=== PATIENT | male | born 1995 | race Caucasian/White ===

== ENCOUNTER 2018-12-16 12:17 | Emergency (ER) | payer MEDICAID ==
[2018-12-16 12:37] VITALS: BP 124/76
--- NOTE | 2018-12-16 13:06 | ER Document Report ---
ED Medical Screen (RME) - General Chief Complaint: Dog Bite Stated Complaint: DOG BITE Time Seen by Provider: 12/16/18 13:00 Primary Care Provider: RUDOLPH MCCRAY MD [Primary Care Provider] - Follow up as needed Notes: Patient was not anywhere to be found. Patient is LW BS TRAVEL OUTSIDE OF THE [place] IN LAST 30 DAYS: No - Related Data Allergies/Adverse Reactions: No Known Allergies Allergy (Verified 12/16/18 12:20) Past Medical History Pulmonary Medical History: Reports: Hx Asthma Psychiatric Medical History: Denies: Hx Schizoaffective Disorder, Hx Schizophrenia Past Surgical History: Reports: Hx Tonsillectomy - Immunizations Immunizations up to date: Yes Physical Exam - Vital signs Vitals: Temp Pulse Resp BP Pulse Ox 98.5 F 71 16 124/76 99 12/16/18 12:35 12/16/18 12:35 12/16/18 12:35 12/16/18 12:35 12/16/18 12:35 Course - Vital Signs Vital signs: Temp Pulse Resp BP Pulse Ox 98.5 F 71 16 124/76 99 12/16/18 12:35 12/16/18 12:35 12/16/18 12:35 12/16/18 12:35 12/16/18 12:35 Doctor's Discharge - Discharge Referrals: RUDOLPH MCCRAY MD [Primary Care Provider] - Follow up as needed
== END 2018-12-16 13:06 | disposition left against medical advice (07) ==
LOC: ER 12:17
DX: Z53.21 Procedure and treatment not carried out due to patient leaving prior to being seen by health care provider (principal)

== ENCOUNTER 2019-04-26 19:52 | Emergency (ER) | payer SELFPAY ==
[2019-04-26] MEDS ORDERED: LIDOCAINE 2% VISCOUS SOLN 20 ML UDCUP PO ONE (21:13)
[2019-04-26] MEDS ORDERED: MAG HYDROX/AL HYDROX/SIMETH SUSP 30 ML UDCUP PO ONE (21:13)
[2019-04-26] MEDS ORDERED: METOCLOPRAMIDE HCL ORAL SOLN 10 MG/10 ML UDCUP PO ONE (21:13)
--- NOTE | 2019-04-26 21:18 | ER Document Report ---
ED Medical Screen (RME) - General Chief Complaint: Epigastric Pain Stated Complaint: EPIGASTRIC PAIN,NAUSEA Time Seen by Provider: 04/26/19 21:08 Primary Care Provider: RUDOLPH MCCRAY MD [Primary Care Provider] - Follow up as needed Notes: Patient is a 24-year-old male who presents to the emergency department with a chief complaint of abdominal pain. Patient reports he has had intermittent right upper quadrant pain for the past 2 years. Patient [place] he was [place] up for this type of pain and was told it was his gallbladder but that they would not remove it unless it was life-threatening. Patient reports 4 hours ago he had acute onset of right upper quadrant pain. Patient reports at that time he also did have acid reflux. Patient reports the abdominal pain has continued to persist but that the acid reflux has gone away. Patient denies nausea, vomiting or diarrhea. Patient denies fever. TRAVEL OUTSIDE OF THE [place] IN LAST 30 DAYS: No - Related Data Allergies/Adverse Reactions: No Known Allergies Allergy (Verified 12/16/18 12:20) Past Medical History - Social History Frequency of alcohol use: Occasional Drug Abuse: None Pulmonary Medical History: Reports: Hx Asthma Psychiatric Medical History: Denies: Hx Schizoaffective Disorder, Hx Schizophrenia Past Surgical History: Reports: Hx Tonsillectomy - Immunizations Immunizations up to date: Yes Physical Exam - Vital signs Vitals: Temp Pulse Resp BP Pulse Ox 97.5 F 72 18 128/68 H 100 04/26/19 20:08 04/26/19 20:08 04/26/19 20:08 04/26/19 20:08 04/26/19 20:08 - Abdominal Inspection: Normal Distension: No distension Bowel sounds: Normal Tenderness: Tender - RUQ and LLQ Course - Re-evaluation Re-evalutation: 04/26/19 21:18 I have greeted and performed a rapid initial assessment of this patient. A comprehensive ED assessment and evaluation of the patient, analysis of test results and completion of the medical decision making process will be conducted by additional ED providers. - Vital Signs Vital signs: Temp Pulse Resp BP Pulse Ox 97.5 F 72 18 128/68 H 100 04/26/19 20:08 04/26/19 20:08 04/26/19 20:08 04/26/19 20:08 04/26/19 20:08 Doctor's Discharge - Discharge Referrals: RUDOLPH MCCRAY MD [Primary Care Provider] - Follow up as needed
[2019-04-26 21:37] LABS: ABSOLUTE BASOPHILS # (AUTO) 0.1 10^3/uL (0.0-0.2); ABSOLUTE EOSINOPHILS # (AUTO) 0.7 10^3/uL (0.0-0.6); ABSOLUTE LYMPHOCYTES (AUTO) 3.5 10^3/uL (0.5-4.7); ABSOLUTE MONOCYTES (AUTO) 0.8 10^3/uL (0.1-1.4); BASOPHILS % (AUTO) 0.8 % (0-2); EOSINOPHILS % (AUTO) 6.4 % (0-6); HEMOGLOBIN 15.9 g/dL (13.5-17.0); LYMPHOCYTES % (AUTO) 31.5 % (13-45); MEAN CORPUSCULAR HEMOGLOBIN 31.2 pg (27.0-33.4); MEAN CORPUSCULAR HGB CONC 34.6 g/dL (32.0-36.0); MEAN CORPUSCULAR VOLUME 90 fl (80-97); MONOCYTES % (AUTO) 7.1 % (3-13); PLATELET COUNT 217 10^3/uL (150-450); RED CELL DISTRIBUTION WIDTH 12.9 % (11.5-14.0); SEGMENTED NEUTROPHILS % (AUTO) 54.2 % (42-78); TOTAL CELLS COUNTED % (AUTO) 100 %; WHITE BLOOD COUNT 11.1 10^3/uL (4.0-10.5)
[2019-04-26 21:52] LABS: ALBUMIN 4.5 g/dL (3.5-5.0); ALKALINE PHOSPHATASE 110 U/L (38-126); ANION GAP 10 (5-19); ASPARTATE AMINO TRANSFERASE 36 U/L (17-59); BILIRUBIN,DIRECT 0.1 mg/dL (0.0-0.4); BILIRUBIN,TOTAL 1.1 mg/dL (0.2-1.3); BLOOD UREA NITROGEN 14 mg/dL (7-20); CALCIUM 9.6 mg/dL (8.4-10.2); CARBON DIOXIDE 24 mmol/L (22-30); CHLORIDE 107 mmol/L (98-107); GLUCOSE 86 mg/dL (75-110); POTASSIUM 4.3 mmol/L (3.6-5.0); TOTAL PROTEIN 7.3 g/dL (6.3-8.2)
[2019-04-26 21:57] LABS: APPEARANCE,URINE CLEAR; BILIRUBIN,URINE NEGATIVE (NEGATIVE); COLOR,URINE YELLOW; GLUCOSE, URINE NEGATIVE (NEGATIVE); KETONES,URINE NEGATIVE (NEGATIVE); LEUKOCYTE ESTERASE,URINE NEGATIVE (NEGATIVE); NITRITE,URINE NEGATIVE (NEGATIVE); PROTEIN,URINE NEGATIVE (NEGATIVE); URINE SPECIFIC GRAVITY 1.012; UROBILINOGEN,URINE NEGATIVE mg/dL (<2.0)
--- NOTE | 2019-04-26 22:45 | RADIOLOGY REPORT (SQ) ---
EXAM DESCRIPTION: [facility]: US ABDOMEN LIMITED CLINICAL HISTORY: 24 years Male; ruq pain TECHNIQUE: Right upper quadrant ultrasound was performed. COMPARISON: None. FINDINGS: Pancreas: Visualized portions are unremarkable. Liver: 16 cm long. No focal lesion or ductal distention. Portal venous flow is hepatopedal, normal. Gallbladder: Small amount of sludge, but no shadowing calculi. Wall is normal. No Napier sign. Common bile duct: 3 mm. Right kidney: 9.9 x 5.5 x 5.5 cm. No hydronephrosis. IMPRESSION: 1. Small amount of gallbladder sludge, but no gallstones or sonographic evidence for acute cholecystitis. 2. No biliary ductal distention
--- NOTE | 2019-04-26 23:34 | ER Document Report ---
ED GI/ - General Chief Complaint: Epigastric Pain Stated Complaint: EPIGASTRIC PAIN,NAUSEA Time Seen by Provider: 04/26/19 21:08 Primary Care Provider: RUDOLPH MCCRAY MD [Primary Care Provider] - Follow up as needed Notes: RME NOTE: Patient is a 24-year-old male who presents to the emergency department with a chief complaint of abdominal pain. Patient reports he has had intermittent right upper quadrant pain for the past 2 years. Patient [place] he was worked up for this type of pain and was told it was his gallbladder but that they would not remove it unless it was life-threatening. Patient reports 4 hours ago he had acute onset of right upper quadrant pain. Patient reports at that time he also did have acid reflux. Patient reports the abdominal pain has continued to persist but that the acid reflux has gone away. Patient denies nausea, vomiting or diarrhea. Patient denies fever. MY HPI: Upon my assessment the patient has been treated with a GI cocktail. He no long er has any discomfort. Same as above. TRAVEL OUTSIDE OF THE [place] IN LAST 30 DAYS: No - Related Data Allergies/Adverse Reactions: No Known Allergies Allergy (Verified 12/16/18 12:20) Past Medical History - General Information source: Patient - Social History Smoking Status: Current Every Day Smoker Frequency of alcohol use: Occasional Drug Abuse: None Family History: Reviewed & Not Pertinent Patient has suicidal ideation: No Patient has homicidal ideation: No Pulmonary Medical History: Reports: Hx Asthma Psychiatric Medical History: Denies: Hx Schizoaffective Disorder, Hx Schizophrenia Past Surgical History: Reports: Hx Tonsillectomy - Immunizations Immunizations up to date: Yes Review of Systems - Review of Systems Constitutional: denies: Fever EENT: No symptoms reported Cardiovascular: No symptoms reported Respiratory: No symptoms reported Gastrointestinal: See HPI Genitourinary: No symptoms reported Male Genitourinary: No symptoms reported Musculoskeletal: No symptoms reported Skin: No symptoms reported Hematologic/Lymphatic: No symptoms reported Neurological/Psychological: No symptoms reported Physical Exam - Vital signs Vitals: Temp Pulse Resp BP Pulse Ox 97.5 F 72 18 128/68 H 100 04/26/19 20:08 04/26/19 20:08 04/26/19 20:08 04/26/19 20:08 04/26/19 20:08 - Notes Notes: GENERAL: Alert, interacts well. No acute distress. HEAD: Normocephalic, atraumatic. EYES: Pupils equal, round, and reactive to light. Extraocular movements intact. ENT: Oral mucosa moist, tongue midline. NECK: Full range of motion. Supple. Trachea midline. LUNGS: Clear to auscultation bilaterally, no wheezes, rales, or rhonchi. No res piratory distress. HEART: Regular rate and rhythm. No murmur ABDOMEN: Soft, non-tender. Non-distended. Bowel sounds present in all 4 quadrants. EXTREMITIES: Moves all 4 extremities spontaneously. No edema, normal radial and dorsalis pedis pulses bilaterally. No cyanosis. BACK: no cervical, thoracic, lumbar midline tenderness. No saddle anesthesia, normal distal neurovascular exam. NEUROLOGICAL: Alert and oriented x3. Normal speech. cranial nerves II through XII grossly intact PSYCH: Normal affect, normal mood. SKIN: Warm, dry, normal turgor. No rashes or lesions noted. Course - Re-evaluation Re-evalutation: Laboratory 04/26/19 04/26/19 04/26/19 21:20 21:20 21:20 WBC 11.1 H RBC 5.10 Hgb 15.9 Hct 46.0 MCV 90 MCH 31.2 MCHC 34.6 RDW 12.9 Plt Count 217 Lymph % (Auto) 31.5 [place] % (Auto) 7.1 Eos % (Auto) 6.4 H Baso % (Auto) 0.8 Absolute Neuts (auto) 6.0 Absolute Lymphs (auto) 3.5 Absolute Monos (auto) 0.8 Absolute Eos (auto) 0.7 H Absolute Basos (auto) 0.1 Seg Neutrophils % 54.2 Sodium 141.0 Potassium 4.3 Chloride 107 Carbon Dioxide 24 Anion Gap 10 BUN 14 Creatinine 0.91 Est GFR ( Amer) > 60 Est GFR (MDRD) Non-Af > 60 Glucose 86 Calcium 9.6 Total Bilirubin 1.1 Direct Bilirubin 0.1 Neonat Total Bilirubin Not Reportable Neonat Direct Bilirubin Not Reportable Neonat Indirect Bili Not Reportable AST 36 ALT 60 Alkaline Phosphatase 110 Total Protein 7.3 Albumin 4.5 Lipase 63.7 Urine Color YELLOW Urine Appearance CLEAR Urine pH 5.0 Ur Specific [place] 1.012 Urine Protein NEGATIVE Urine Glucose (UA) NEGATIVE Urine Ketones NEGATIVE Urine Blood NEGATIVE Urine Nitrite NEGATIVE Urine Bilirubin NEGATIVE Urine Urobilinogen NEGATIVE Ur Leukocyte Esterase NEGATIVE Urine WBC (Auto) 1 Urine RBC (Auto) 0 Urine Mucus (Auto) RARE Urine Ascorbic Acid NEGATIVE Abdomen Ultrasound 04/26/19 21:13 IMPRESSION: 1. Small amount of gallbladder sludge, but no gallstones or sonographic evidence for acute cholecystitis. 2. No biliary ductal distention Patient's ultrasound shows no signs of cholecystitis. I have discussed with him at bedside need to follow-up with surgery for potential elective removal of his gallbladder. Upon my assessment patient has been treated with a GI cocktail and no longer has any discomfort. Abdominal exam is benign. I discussed close return precautions and close follow-up with surgery. Patient stable for discharge. - Vital Signs Vital signs: Temp Pulse Resp BP Pulse Ox 97.5 F 72 18 128/68 H 100 04/26/19 20:08 04/26/19 20:08 04/26/19 20:08 04/26/19 20:08 04/26/19 20:08 - Laboratory Result Diagrams: 04/26/19 21:20 04/26/19 21:20 Laboratory results interpreted by me: 04/26/19 21:20 WBC 11.1 H Eos % (Auto) 6.4 H Absolute Eos (auto) 0.7 H Discharge - Discharge Clinical Impression: Cholelithiasis Qualifiers: Cholelithiasis location: gallbladder Cholecystitis presence: without cholecystitis Biliary obstruction: without biliary obstruction Qualified Code(s): K80.20 - Calculus of gallbladder without cholecystitis without obstruction Condition: Stable Disposition: HOME, SELF-CARE Instructions: Gallbladder Disease ([facility]) Additional Instructions: As we discussed you have been seen and treated in the emergency department for your abdominal pain. Your ultrasound shows you to have stones in your gallb ladder. You do potentially need your gallbladder removed. You should follow-up with surgery. Phone numbers for surgeon in your area has been provided in this packet. Please use indigestion medication as prescribed. Please return to the emergency department for any concerns. Prescriptions: Famotidine [Pepcid 40 mg Tablet] 20 mg PO BID #60 tablet Forms: Return to Work Referrals: RUDOLPH MCCRAY MD [Primary Care Provider] - Follow up as needed NAA HARVEY MD [ACTIVE STAFF] - Follow up as needed
[2019-04-26 23:46] VITALS: BP 122/79
== END 2019-04-26 23:54 | disposition home or self-care (01) ==
LOC: ER 19:52
DX: K80.20 Calculus of gallbladder without cholecystitis without obstruction (principal); K21.9 Gastro-esophageal reflux disease without esophagitis; R10.11 Right upper quadrant pain; F17.200 Nicotine dependence, unspecified, uncomplicated; J45.909 Unspecified asthma, uncomplicated
CPT/HCPCS: 36415; 83690; 85025; 80053; 81001; 76705; J3490; 99284